=== PATIENT | female | born 1985 | race African-American/Black ===

== ENCOUNTER 2019-03-01 13:06 | Emergency (ER) | payer MEDICAID ==
[~2019-03-01] VITALS: Ht 170.2 cm; Wt 90.7 kg
--- NOTE | 2019-03-01 13:40 | NUR ---
CALLED POSION CONTROL FOR THIS PATIENT WITH OVERDOSE OF 25 TOPOMAX AND 10 TRAZADONE, UNKNOWN DOSAGE. ADVISED OBSERVE FOR WIDENING QRS ON EKG, SEDATION AND SEIZURE PRECAUTION. ORDER EKG AND REPEAT EVERY 4 HOURS, BMP LABS AND RULE OUT OTHER DRUGS SCREEN.
--- NOTE | 2019-03-01 13:48 | NUR ---
Patient awake alert ambulatory urine obtained and send to lab
[2019-03-01 13:56] LABS: BASOPHILS # (AUTO) 0.1 /CMM (0.0-0.2); BASOPHILS % (AUTO) 0.6 % (0.0-2.0); EOSINOPHILS % (AUTO) 0.7 % (0.0-6.0); HEMATOCRIT 41 % (33-45); HEMOGLOBIN 13.3 g/dL (11.5-14.8); LYMPHOCYTES % (AUTO) 15.2 % (20.0-44.0); MEAN CORPUSCULAR HGB CONC 33 g/dl (31.0-36.0); MEAN CORPUSCULAR VOLUME 84 fL (82-100); NEUTROPHILS # (AUTO) 9.7 /CMM (1.8-8.9); NEUTROPHILS % (AUTO) 75.5 % (43.0-81.0); PLATELET COUNT (AUTO) 281 /CMM (150-450); RED BLOOD CELL COUNT(AUTO) 4.83 MIL/uL (4.0-5.2); WHITE BLOOD COUNT (AUTO) 12.9 K/uL (4.3-11.0)
[2019-03-01 14:02] LABS: APPEARANCE,URINE Clear (CLEAR); BILIRUBIN,URINE Negative (NEGATIVE); BLOOD, URINE Trace-intact Ery/uL (NEGATIVE); COLOR,URINE Yellow (YELLOW); KETONES,URINE Trace (NEGATIVE); LEUKOCYTE ESTERASE ,URINE Negative (NEGATIVE); NITRITE, URINE Negative (NEGATIVE); PROTEIN,URINE Negative (NEGATIVE); UGLUCOSE Negative (NEGATIVE); UROBILINOGEN,URINE 0.2 EU/dL (0.2)
[2019-03-01 14:03] LABS: PH,URINE >9.0 (5.0-8.0)
[2019-03-01 14:12] LABS: CALCIUM, SERUM 9.6 mg/dL (8.5-10.1); CARBON DIOXIDE 23 mmol/L (21-32); CHLORIDE 109 mmol/L (98-107); CREATININE 0.7 mg/dL (0.6-1.3); GLUCOSE 107 mg/dL (74-106); SODIUM SERUM 142 mmol/L (136-145); UREA NITROGEN, BLOOD 9 mg/dL (7-18)
[2019-03-01 14:14] LABS: BACTERIA,URINE Few /HPF (None Seen); SQUAMOUS EPITHELIAL CELL,UR Few /HPF (None Seen); WBC,URINE NONE SEEN /HPF (0-3)
[2019-03-01 14:16] LABS: ALANINE AMINOTRANSFERASE 30 U/L (12-78); ALBUMIN 3.9 g/dL (3.4-5.0); ALCOHOL, BLOOD < 3 mg/dL (0-0); ALKALINE PHOSPHATASE 109 U/L (46-116); ASPARTATE AMINOTRANSFERASE 20 U/L (15-37); BILIRUBIN,DIRECT 0.1 mg/dL (0.0-0.2); BILIRUBIN,TOTAL 0.2 mg/dL (0.2-1.0); TOTAL PROTEIN, SERUM 8.1 g/dL (6.4-8.2)
[2019-03-01 14:17] LABS: ACETAMINOPHEN < 2 ug/ml (10-30)
--- NOTE | 2019-03-01 14:27 | NUR ---
Patient is no response to CRRS question .Patient awake alert she has intermittent not following command 2[address] place on monitor lab draws done sitter @ bedside .
--- NOTE | 2019-03-01 14:45 | NUR ---
Patient yelling non follows commands would like to go out called security agitation Ketty AGUSTIN made aware no orders recieved
[2019-03-01] MEDS: IV NS 0.9% 1,000 ML BAG IV ONE (16:00)
--- NOTE | 2019-03-01 16:47 | NUR ---
called central office worker marco mtz voicemail
--- NOTE | 2019-03-01 17:12 | NUR ---
CALLED [employer] MORTISER OPERATOR LYLE, WILL CALL BACK WHEN PT IS MEDICALLY CLEAR (APPROX 2 HRS)
--- NOTE | 2019-03-01 17:26 | NUR ---
Patient awake able obtained heplock to RAC 20 ,IVF infusing well
--- NOTE | 2019-03-01 18:00 | NUR ---
Padded side rails no Sz activity
--- NOTE | 2019-03-01 19:10 | NUR ---
Transfer care report to Irasema VALDEZ
--- NOTE | 2019-03-01 19:41 | NUR ---
CALLED FEEDER CATCHER MADALYN ALVARENGA VOICEMAIL
--- NOTE | 2019-03-01 20:44 | NUR ---
SEEN BY NABIL FROM CRISIS TEAM. PER NABIL PT IS CLEAR TO BE D/C'D
--- NOTE | 2019-03-01 21:12 | NUR ---
IV removed. Catheter intact and site benign. Pressure and 4x4 applied to site. No bleeding noted.Patient discharged to home in stable condition. Written and verbal after care instructions given. Patient verbalizes understanding of instruction. Pt was given a list of psychiatric resources by crisis team. pt denied being homeless and stated she lives in an apartment in [place]. all belonmgings were picked up by the pt. pt had steady gaits upon d/c
[2019-03-01 21:15] VITALS: BP 119/76
== END 2019-03-01 21:15 | disposition home or self-care (01) ==
LOC: ER 13:08
DX: T42.6X1A Poisoning by other antiepileptic and sedative-hypnotic drugs, accidental (unintentional), initial encounter (principal); R45.851 Suicidal ideations; F31.9 Bipolar disorder, unspecified; R00.0 Tachycardia, unspecified; F10.10 Alcohol abuse, uncomplicated; Y90.0 Blood alcohol level of less than 20 mg/100 ml; Y92.89 Other specified places as the place of occurrence of the external cause
CPT/HCPCS: 36415; 80048; 80076; 80305; 80307; 80329; 81001; 84703; 85025; 93005 ×2; 99285; G0480; J7030; 81000-TC